=== PATIENT | female | born 1965 | race Two or more races ===

== ENCOUNTER 2017-06-16 21:30 | Inpatient (IN) | payer OTHER ==
[2017-06-17] MEDS ORDERED: IBUPROFEN 400 MG TAB PO (01:30)
[2017-06-17] MEDS ORDERED: MAGNESIUM HYDROXIDE 30ML CUP PO (01:30)
[2017-06-17] MEDS ORDERED: RANITIDINE 150 MG TAB PO (01:30)
[2017-06-17] MEDS ORDERED: ALPRAZOLAM 0.5 MG TAB PO (01:30)
[2017-06-17 07:30] LABS: ADD UMIC YES; UR ASCORBIC ACID NEGATIVE (NEGATIVE); UR BILIRUBIN (Dip) NEGATIVE (NEGATIVE); UR BLOOD (Dip) 2+ mg/dL (NEGATIVE); UR CLARITY CLEAR (CLEAR); UR COLOR YELLOW (YELLOW); UR GLUCOSE (Dip) NEGATIVE (NEGATIVE); UR KETONES (Dip) NEGATIVE (NEGATIVE); UR LEUKOCYTE ESTERASE (Dip) TRACE Leu/ul (NEGATIVE); UR NITRITE (Dip) NEGATIVE (NEGATIVE); UR RBC 4 /HPF (0-5); UR SPECIFIC GRAVITY (Dip) 1.009 (1.003-1.030); UR SQUAMOUS EPITHELIAL CELL FEW /HPF (FEW); UR TOTAL PROTEIN (Dip) NEGATIVE (NEGATIVE); UR UROBILINOGEN (Dip) NEGATIVE (NEGATIVE); UR WBC 6 /HPF (0-5)
[2017-06-17 08:26] LABS: ADD MAN DIFF? NO
[2017-06-17 08:36] LABS: WHITE BLOOD COUNT 8.7 10^3/ul (4.8-10.8)
[2017-06-17 08:36] LABS: BASOPHILS % 0.5 % (0.0-2.0); EOSINOPHILS # 0.1 10^3/ul (0.0-0.5); EOSINOPHILS % 0.6 % (0.0-7.0); HEMATOCRIT 32.4 % (37.0-47.0); HEMOGLOBIN 10.4 g/dl (12.0-16.0); LYMPHOCYTES # 2.1 10^3/ul (0.8-2.9); LYMPHOCYTES % 23.7 % (15.0-51.0); MEAN CORPUSCULAR HEMOGLOBIN 29.8 pg (29.0-33.0); MEAN CORPUSCULAR HGB CONC 32.1 g/dl (32.0-37.0); MEAN CORPUSCULAR VOLUME 92.8 fl (82.0-101.0); MEAN PLATELET VOLUME 9.7 fl (7.4-10.4); MONOCYTE # 0.7 10^3/ul (0.3-0.9); MONOCYTES % 8.4 % (0.0-11.0); NEUTROPHIL # 5.8 10^3/ul (1.6-7.5); PLATELET COUNT 274 10^3/UL (140-415); RED BLOOD COUNT 3.49 10^6/ul (4.20-5.40); RED CELL DISTRIBUTION WIDTH 17.1 % (11.5-14.5)
[2017-06-17] MEDS: GABAPENTIN 300 MG CAP PO ×3 (08:44→20:57)
[2017-06-17] MEDS: oxyCODONE 5 MG TAB PO ×2 (08:47→12:47)
[2017-06-17 09:05] LABS: ALANINE AMINOTRANSFERASE 35 IU/L (13-69); ALBUMIN 3.7 g/dl (3.3-4.9); ALKALINE PHOSPHATASE 118 IU/L (42-121); ANION GAP 15 (8-16); ASPARTATE AMINO TRANSFERASE 32 IU/L (15-46); BILIRUBIN,INDIRECT 0.2 mg/dl (0-1.1); BILIRUBIN,TOTAL 0.2 mg/dl (0.2-1.3); BLOOD UREA NITROGEN 9 mg/dl (7-20); CALCIUM 9.8 mg/dl (8.4-10.2); CARBON DIOXIDE 28 mmol/L (21-31); CHLORIDE 103 mmol/L (97-110); CREATININE 0.48 mg/dl (0.44-1.00); GLUCOSE 96 mg/dl (70-220); SODIUM 142 mmol/L (135-144); TOTAL PROTEIN 7.8 g/dl (6.1-8.1)
[2017-06-17] MEDS: SENNA TAB PO (20:57)
[2017-06-18] MEDS: GABAPENTIN 300 MG CAP PO ×3 (08:16→21:32)
[2017-06-18] MEDS: ALPRAZOLAM 0.25 MG TAB PO (09:49)
[2017-06-18] MEDS: SENNA TAB PO (20:23)
[2017-06-19] MEDS: CIPROFLOXACIN 250 MG TAB PO ×2 (06:23→06:44)
[2017-06-19] MEDS: GABAPENTIN 300 MG CAP PO ×3 (08:37→20:45)
[2017-06-19] MEDS: oxyCODONE 5 MG TAB PO ×2 (08:38→13:14)
[2017-06-19] MEDS ORDERED: TRIMETHOPRIM/SULFAMETHOX (DS) TAB PO (12:00)
[2017-06-19] MEDS: ALPRAZOLAM 0.25 MG TAB PO ×3 (13:15→20:48)
[2017-06-19 14:38] LABS: ADD UMIC YES; UR ASCORBIC ACID NEGATIVE (NEGATIVE); UR BACTERIA FEW /HPF (NONE SEEN); UR BILIRUBIN (Dip) NEGATIVE (NEGATIVE); UR BLOOD (Dip) 2+ mg/dL (NEGATIVE); UR CALCIUM OXALATE CRYSTAL MANY /HPF (NONE SEEN); UR CLARITY SLIGHTLY CLOUDY (CLEAR); UR COLOR YELLOW (YELLOW); UR GLUCOSE (Dip) NEGATIVE (NEGATIVE); UR KETONES (Dip) NEGATIVE (NEGATIVE); UR LEUKOCYTE ESTERASE (Dip) NEGATIVE Leu/ul (NEGATIVE); UR MUCUS FEW /HPF (NONE SEEN); UR NITRITE (Dip) NEGATIVE (NEGATIVE); UR RBC 3 /HPF (0-5); UR SQUAMOUS EPITHELIAL CELL FEW /HPF (FEW); UR TOTAL PROTEIN (Dip) 1+ mg/dl (NEGATIVE); UR UROBILINOGEN (Dip) NEGATIVE (NEGATIVE); UR WBC 5 /HPF (0-5)
[2017-06-19] MEDS: ERTAPENEM SODIUM 1 GM in SOD CHLORIDE 0.9% 100 ML IVPB (16:19)
[2017-06-19] MEDS: SENNA TAB PO (20:47)
[2017-06-20] MEDS: PANTOPRAZOLE (EC) 40 MG TAB PO (06:48)
[2017-06-20 08:16] LABS: ADD MAN DIFF? NO
[2017-06-20] MEDS: GABAPENTIN 300 MG CAP PO ×3 (08:18→21:49)
[2017-06-20 08:20] LABS: BASOPHILS % 0.5 % (0.0-2.0); EOSINOPHILS # 0.1 10^3/ul (0.0-0.5); EOSINOPHILS % 1.2 % (0.0-7.0); HEMATOCRIT 31.3 % (37.0-47.0); HEMOGLOBIN 9.9 g/dl (12.0-16.0); LYMPHOCYTES # 1.6 10^3/ul (0.8-2.9); LYMPHOCYTES % 22.2 % (15.0-51.0); MEAN CORPUSCULAR HEMOGLOBIN 29.4 pg (29.0-33.0); MEAN CORPUSCULAR HGB CONC 31.6 g/dl (32.0-37.0); MEAN CORPUSCULAR VOLUME 92.9 fl (82.0-101.0); MEAN PLATELET VOLUME 9.9 fl (7.4-10.4); MONOCYTE # 0.6 10^3/ul (0.3-0.9); MONOCYTES % 8.6 % (0.0-11.0); NEUTROPHIL # 4.9 10^3/ul (1.6-7.5); PLATELET COUNT 250 10^3/UL (140-415); RED BLOOD COUNT 3.37 10^6/ul (4.20-5.40); RED CELL DISTRIBUTION WIDTH 17.1 % (11.5-14.5)
[2017-06-20 08:20] LABS: WHITE BLOOD COUNT 7.3 10^3/ul (4.8-10.8)
[2017-06-20] MEDS: oxyCODONE 5 MG TAB PO ×2 (08:20→12:48)
[2017-06-20] MEDS: ALPRAZOLAM 0.25 MG TAB PO ×2 (08:20→21:49)
[2017-06-20 08:40] LABS: MAGNESIUM 1.5 mg/dl (1.7-2.5)
[2017-06-20 08:40] LABS: PHOSPHORUS 4.8 mg/dl (2.5-4.9)
[2017-06-20 08:44] LABS: ANION GAP 15 (8-16); BLOOD UREA NITROGEN 15 mg/dl (7-20); CALCIUM 9.4 mg/dl (8.4-10.2); CARBON DIOXIDE 28 mmol/L (21-31); CHLORIDE 105 mmol/L (97-110); CREATININE 0.55 mg/dl (0.44-1.00); GLUCOSE 91 mg/dl (70-220); POTASSIUM 4.2 mmol/L (3.5-5.1); SODIUM 144 mmol/L (135-144)
[2017-06-20] MEDS: ERTAPENEM SODIUM 1 GM in SOD CHLORIDE 0.9% 100 ML IVPB (12:48)
[2017-06-20] MEDS: MAGNESIUM CHLORIDE (SR) 64 MG TAB PO (15:07)
[2017-06-20] MEDS: SENNA TAB PO (21:00)
[2017-06-21] MEDS: PANTOPRAZOLE (EC) 40 MG TAB PO (05:57)
[2017-06-21 08:22] LABS: ANION GAP 16 (8-16); BLOOD UREA NITROGEN 15 mg/dl (7-20); CALCIUM 9.3 mg/dl (8.4-10.2); CARBON DIOXIDE 28 mmol/L (21-31); CHLORIDE 106 mmol/L (97-110); CREATININE 0.49 mg/dl (0.44-1.00); GLUCOSE 84 mg/dl (70-220); POTASSIUM 3.9 mmol/L (3.5-5.1); SODIUM 146 mmol/L (135-144)
[2017-06-21] MEDS: ALPRAZOLAM 0.25 MG TAB PO ×2 (09:05→20:53)
[2017-06-21] MEDS: GABAPENTIN 300 MG CAP PO ×3 (09:05→20:51)
[2017-06-21] MEDS: ERTAPENEM SODIUM 1 GM in SOD CHLORIDE 0.9% 100 ML IVPB (12:14)
[2017-06-21] MEDS: SENNA TAB PO (20:52)
[2017-06-22] MEDS: PANTOPRAZOLE (EC) 40 MG TAB PO (06:26)
[2017-06-22] MEDS: ALPRAZOLAM 0.25 MG TAB PO ×2 (09:16→20:25)
[2017-06-22] MEDS: GABAPENTIN 300 MG CAP PO ×3 (09:16→20:24)
[2017-06-22] MEDS: ACETAMINOPHEN 325 MG TAB PO ×2 (09:25→20:27)
[2017-06-22] MEDS: ERTAPENEM SODIUM 1 GM in SOD CHLORIDE 0.9% 100 ML IVPB (13:39)
[2017-06-22] MEDS: SENNA TAB PO (20:40)
[2017-06-23] MEDS: PANTOPRAZOLE (EC) 40 MG TAB PO (06:12)
[2017-06-23] MEDS: GABAPENTIN 300 MG CAP PO ×3 (08:42→20:35)
[2017-06-23] MEDS: ALPRAZOLAM 0.25 MG TAB PO ×2 (08:42→20:35)
[2017-06-23] MEDS: ERTAPENEM SODIUM 1 GM in SOD CHLORIDE 0.9% 100 ML IVPB (13:31)
[2017-06-23] MEDS: SENNA TAB PO (20:35)
[2017-06-23] MEDS: oxyCODONE 5 MG TAB PO (22:43)
[2017-06-24 07:03] LABS: ADD MAN DIFF? NO
[2017-06-24] MEDS: PANTOPRAZOLE (EC) 40 MG TAB PO (07:03)
[2017-06-24 07:10] LABS: BASOPHILS % 0.7 % (0.0-2.0); EOSINOPHILS # 0.2 10^3/ul (0.0-0.5); EOSINOPHILS % 2.9 % (0.0-7.0); HEMATOCRIT 30.4 % (37.0-47.0); HEMOGLOBIN 9.7 g/dl (12.0-16.0); LYMPHOCYTES # 1.6 10^3/ul (0.8-2.9); LYMPHOCYTES % 28.3 % (15.0-51.0); MEAN CORPUSCULAR HEMOGLOBIN 29.5 pg (29.0-33.0); MEAN CORPUSCULAR HGB CONC 31.9 g/dl (32.0-37.0); MEAN CORPUSCULAR VOLUME 92.4 fl (82.0-101.0); MEAN PLATELET VOLUME 9.4 fl (7.4-10.4); MONOCYTE # 0.5 10^3/ul (0.3-0.9); MONOCYTES % 9.9 % (0.0-11.0); NEUTROPHIL # 3.2 10^3/ul (1.6-7.5); NEUTROPHILS % 57.7 % (39.0-77.0); PLATELET COUNT 257 10^3/UL (140-415); RED BLOOD COUNT 3.29 10^6/ul (4.20-5.40)
[2017-06-24 07:10] LABS: WHITE BLOOD COUNT 5.5 10^3/ul (4.8-10.8)
[2017-06-24 07:47] LABS: MAGNESIUM 1.5 mg/dl (1.7-2.5)
[2017-06-24 07:47] LABS: PHOSPHORUS 5.2 mg/dl (2.5-4.9)
[2017-06-24 07:50] LABS: ANION GAP 11 (8-16); BLOOD UREA NITROGEN 10 mg/dl (7-20); CALCIUM 9.2 mg/dl (8.4-10.2); CARBON DIOXIDE 30 mmol/L (21-31); CHLORIDE 107 mmol/L (97-110); CREATININE 0.51 mg/dl (0.44-1.00); GLUCOSE 83 mg/dl (70-220); POTASSIUM 3.7 mmol/L (3.5-5.1); SODIUM 144 mmol/L (135-144)
[2017-06-24] MEDS: GABAPENTIN 300 MG CAP PO ×3 (08:36→20:45)
[2017-06-24] MEDS: ALPRAZOLAM 0.25 MG TAB PO ×2 (08:36→20:45)
[2017-06-24] MEDS: MAGNESIUM OXIDE 400 MG TAB PO ×2 (12:59→20:45)
[2017-06-24] MEDS: ERTAPENEM SODIUM 1 GM in SOD CHLORIDE 0.9% 100 ML IVPB (13:00)
[2017-06-24] MEDS: ENOXAPARIN 30 MG/0.3 ML SYG SC (14:00)
[2017-06-24] MEDS: SENNA TAB PO (20:49)
[2017-06-25] MEDS: PANTOPRAZOLE (EC) 40 MG TAB PO (06:35)
[2017-06-25] MEDS: GABAPENTIN 300 MG CAP PO ×3 (09:31→20:24)
[2017-06-25] MEDS: ALPRAZOLAM 0.25 MG TAB PO ×3 (09:31→21:00)
[2017-06-25] MEDS: ERTAPENEM SODIUM 1 GM in SOD CHLORIDE 0.9% 100 ML IVPB (13:30)
[2017-06-25] MEDS: SENNA TAB PO (21:00)
[2017-06-26] MEDS: PANTOPRAZOLE (EC) 40 MG TAB PO (06:41)
[2017-06-26] MEDS: ALPRAZOLAM 0.25 MG TAB PO ×3 (09:13→21:02)
[2017-06-26] MEDS: GABAPENTIN 300 MG CAP PO ×3 (09:13→21:02)
[2017-06-26] MEDS: ERTAPENEM SODIUM 1 GM in SOD CHLORIDE 0.9% 100 ML IVPB (14:27)
[2017-06-26] MEDS: oxyCODONE 5 MG TAB PO (14:28)
[2017-06-26 15:04] LABS: ANION GAP 17 (8-16); BLOOD UREA NITROGEN 9 mg/dl (7-20); CALCIUM 9.4 mg/dl (8.4-10.2); CARBON DIOXIDE 27 mmol/L (21-31); CHLORIDE 106 mmol/L (97-110); GLUCOSE 102 mg/dl (70-220); POTASSIUM 3.7 mmol/L (3.5-5.1); SODIUM 146 mmol/L (135-144)
[2017-06-26 15:06] LABS: MAGNESIUM 1.4 mg/dl (1.7-2.5)
[2017-06-26] MEDS: SENNA TAB PO (21:00)
[2017-06-27] MEDS: PANTOPRAZOLE (EC) 40 MG TAB PO (06:37)
[2017-06-27] MEDS: GABAPENTIN 300 MG CAP PO ×3 (08:52→21:01)
[2017-06-27] MEDS: ALPRAZOLAM 0.25 MG TAB PO ×2 (08:52→21:01)
[2017-06-27] MEDS: POTASSIUM CHLORIDE (SR) 20 MEQ TAB PO (09:59)
[2017-06-27] MEDS ORDERED: AL HYDROX/MG HYDROX/SIMETH 30 ML CUP PO (12:00)
[2017-06-27 14:55] LABS: ADD UMIC YES; UR ASCORBIC ACID NEGATIVE (NEGATIVE); UR BILIRUBIN (Dip) NEGATIVE (NEGATIVE); UR BLOOD (Dip) 2+ mg/dL (NEGATIVE); UR CLARITY CLEAR (CLEAR); UR COLOR YELLOW (YELLOW); UR GLUCOSE (Dip) NEGATIVE (NEGATIVE); UR KETONES (Dip) NEGATIVE (NEGATIVE); UR LEUKOCYTE ESTERASE (Dip) NEGATIVE Leu/ul (NEGATIVE); UR NITRITE (Dip) NEGATIVE (NEGATIVE); UR RBC 6 /HPF (0-5); UR SPECIFIC GRAVITY (Dip) 1.008 (1.003-1.030); UR TOTAL PROTEIN (Dip) NEGATIVE (NEGATIVE); UR UROBILINOGEN (Dip) NEGATIVE (NEGATIVE); UR WBC 6 /HPF (0-5)
[2017-06-27] MEDS: MAGNESIUM SULFATE 4 GM/100 ML 100 ML IVPB (17:57)
[2017-06-27] MEDS: SENNA TAB PO (21:00)
[2017-06-27] MEDS: oxyCODONE 5 MG TAB PO (23:20)
[2017-06-28] MEDS: PANTOPRAZOLE (EC) 40 MG TAB PO (05:45)
[2017-06-28] MEDS: ALPRAZOLAM 0.25 MG TAB PO ×2 (09:30→20:46)
[2017-06-28] MEDS: GABAPENTIN 300 MG CAP PO ×3 (09:30→20:46)
[2017-06-28] MEDS: SENNA TAB PO (20:48)
[2017-06-29] MEDS: PANTOPRAZOLE (EC) 40 MG TAB PO (06:50)
[2017-06-29] MEDS: ALPRAZOLAM 0.25 MG TAB PO ×2 (08:18→20:18)
[2017-06-29] MEDS: GABAPENTIN 300 MG CAP PO ×3 (08:19→20:18)
[2017-06-29] MEDS: oxyCODONE 5 MG TAB PO ×2 (15:28→23:40)
[2017-06-29] MEDS: SENNA TAB PO (20:20)
[2017-06-30] MEDS: PANTOPRAZOLE (EC) 40 MG TAB PO (06:33)
[2017-06-30] MEDS: ALPRAZOLAM 0.25 MG TAB PO (10:12)
[2017-06-30] MEDS: GABAPENTIN 300 MG CAP PO ×2 (10:12→12:38)
[2017-06-30] MEDS: ACETAMINOPHEN 325 MG TAB PO (13:18)
== END 2017-06-30 13:40 | DRG 945 ==
LOC: VRC 06-19 10:37
PROC: F07Z5ZZ Bed Mobility Treatment (ICD-10-PCS; principal; 2017-06-16)
PROC: F08Z2ZZ Grooming/Personal Hygiene Treatment (ICD-10-PCS; 2017-06-16)
DX: R53.81 Other malaise (principal); I82.402 Acute embolism and thrombosis of unspecified deep veins of left lower extremity; N39.0 Urinary tract infection, site not specified; G62.9 Polyneuropathy, unspecified; R52 Pain, unspecified; Z85.828 Personal history of other malignant neoplasm of skin; F41.9 Anxiety disorder, unspecified; M79.622 Pain in left upper arm; R10.30 Lower abdominal pain, unspecified; I80.9 Phlebitis and thrombophlebitis of unspecified site; B96.20 Unspecified Escherichia coli [E. coli] as the cause of diseases classified elsewhere
CPT/HCPCS: 80048; 80053; 81001; 83735; 84100; 85025; 87081; 87086; 97110; 97112; 97116; 97150; 97163; 97167; 97530; 97535; 97542